=== PATIENT | male | born 1955 | race Two or more races ===

== ENCOUNTER 2023-09-30 18:16 | Emergency (ER) | payer MEDICAID ==
[~2023-09-30] VITALS: Ht 167.6 cm; Wt 68.0 kg
[2023-09-30] MEDS ORDERED: KETOROLAC TROMETHAMINE INJ 30 MG/ML VIAL ONE (20:12)
[2023-09-30] MEDS ORDERED: KETOROLAC TROMETHAMINE INJ 30 MG/ML VIAL IM ONE (20:30)
[2023-09-30] MEDS ORDERED: IBUP-1955 PO (21:48)
[2023-09-30] MEDS ORDERED: CYCL10TA9 PO (21:48)
[2023-09-30 22:02] VITALS: BP 100/63; TEMP 98; O2SAT 98
== END 2023-09-30 22:02 | disposition home or self-care (01) ==
LOC: ER 18:20
DX: S16.1XXA Strain of muscle, fascia and tendon at neck level, initial encounter (principal); S39.012A Strain of muscle, fascia and tendon of lower back, initial encounter; S66.812A Strain of other specified muscles, fascia and tendons at wrist and hand level, left hand, initial encounter; S86.812A Strain of other muscle(s) and tendon(s) at lower leg level, left leg, initial encounter; Z79.899 Other long term (current) drug therapy; V49.9XXA Car occupant (driver) (passenger) injured in unspecified traffic accident, initial encounter; Y93.89 Activity, other specified; Y92.89 Other specified places as the place of occurrence of the external cause; Y99.8 Other external cause status
CPT/HCPCS: 99284; 96372; 72050; 72110; 73564; 73030; J1885